=== PATIENT | female | born 1970 | race Caucasian/White ===

== ENCOUNTER 2018-12-03 15:03 | Emergency (ER) | payer OTHER ==
[2018-12-03 15:52] VITALS: BP 147/97
[2018-12-03] MEDS ORDERED: KETOROLAC 60 MG/2 ML VIAL IM STA (18:22)
[2018-12-03] MEDS ORDERED: DEXAMETHASONE 10 MG/ML VIAL PO STA (18:22)
--- NOTE | 2018-12-03 18:24 | ED Physician Documentation ---
PD HPI Fall - Stated complaint Stated Complaint: FALL/NECK & BACK PAIN - Chief complaint Chief Complaint: General - History obtained from History obtained from: Patient - History of Present Illness Mechanism of injury: Slipped Fall distance: Standing position Where injury occurred: Work Timing - onset: Enter time (0800), Today Injury(ies) location: Neck, Back, Left Uppper Extremity, Left Lower Extremity Quality of pain: Pain Associated symptoms: No: LOC, AMS, Amnesia, Seizures, Ear drainage, Nasal drainage, Neck pain, Weakness, Paresthesias, Dyspnea, Nausea / vomiting, Hematemesis, Abdominal distension Symptoms improve with: Rest Worsens with: Movement, Palpation Similar symptoms before: Has not had sx before Recently seen: Not recently seen - Additional information Additional information: 48-year-old female working at the [employer] in [place] went outside today and slipped on ice landing on her left elbow and hip and jarring her back. She did this at about 8:00 in the morning she is now stiffening up and is having pain in her upper back and neck and the pain in her elbow is much improved as is the pain in her hip. She states that she is certain she did not break anything but she was insisted by her workers to come to the emergency department for evaluation and she was not able to get into see her regular doctor today. The patient insists that she did not hit her head and she did not have loss of consciousness. Review of Systems Constitutional: denies: Fever Eyes: denies: Decreased vision Ears: denies: Ear pain Nose: denies: Congestion Throat: denies: Sore throat Cardiac: denies: Chest pain / pressure Respiratory: denies: Cough GI: denies: Abdominal Pain, Nausea, Vomiting : denies: Dysuria, Frequency Skin: denies: Rash Musculoskeletal: reports: Neck pain, Back pain, Extremity pain Neurologic: denies: Generalized weakness, Focal weakness, Numbness, Head injury, LOC PD PAST MEDICAL HISTORY - Present Medications Home Medications: Ambulatory Orders Medication Instructions Recorded Confirmed Cyclobenzaprine [Flexeril] 10 mg PO TID PRN #20 tablet 12/03/18 Hydrocodone/Acetaminophen 1 - 2 each PO Q6H PRN #14 tablet 12/03/18 [Hydrocodon-Acetaminophen 5-325] - Allergies Allergies/Adverse Reactions: Allergies Allergy/AdvReac Type Severity Reaction Status Date / Time No Known Drug Allergies Allergy Verified 12/03/18 15:52 PD ED PE NORMAL - Vitals Vital signs reviewed: Yes - General General: Alert and oriented X 3, No acute distress, Well developed/nourished - HEENT HEENT: Atraumatic, PERRL, EOMI - Neck Neck: Supple, no meningeal sign, No bony TTP, Other (There is paraspinous muscle tendeness bilaterally extending to the occiput. ) - Cardiac Cardiac: RRR, No murmur - Respiratory Respiratory: No respiratory distress, Clear bilaterally - Abdomen Abdomen: Soft, Non tender - Back Back: No CVA TTP, No spinal TTP, Other (There is paraspinous muscle tenderness to palpation over the lower thoracic spine. ) - Derm Derm: Normal color, Warm and dry, No rash - Extremities Extremities: No deformity, No edema, Other (The left elbow is non-tender, with full ROM and there is no crepitance and the left hip is without deficit. ) - Neuro Neuro: Alert and oriented X 3, system technologist 2-12 intact, No motor deficit, No sensory deficit, Normal speech Eye Opening: Spontaneous Motor: Obeys Commands Verbal: Oriented GCS Score: 15 - Psych Psych: Normal mood, Normal affect Results - Vitals Vitals: Vital Signs - 24 hr 12/03/18 15:48 Temperature 36.0 C L Heart Rate 86 Respiratory 18 Rate Blood Pressure 147/97 H O2 Saturation 100 Oxygen O2 Source Room air PD MEDICAL DECISION MAKING - ED course Complexity details: considered differential, d/w patient ED course: 48-year-old female with a slip and fall the ice has ruben her back she has pain and spasm in her neck and upper back and here in the emerge department she is administered dexamethasone and Toradol. We did discuss imaging procedures and she would like to forego imaging at this time as she is certain there is nothing broken. I discussed with her that if she does not respond appropriately to treatment and continues to have pain beyond the expected length imaging would be indicated. Departure - Departure Disposition: 01 Home, Self Care Clinical Impression: Cervical strain, acute Qualifiers: Encounter type: initial encounter Qualified Code(s): S16.1XXA - Strain of muscle, fascia and tendon at neck level, initial encounter Acute thoracic myofascial strain Qualifiers: Encounter type: initial encounter Qualified Code(s): S29.019A - Strain of muscle and tendon of unspecified wall of thorax, initial encounter Condition: Stable Instructions: ED Neck Back Pain General Follow-Up: Mark Hdz ARNP [Primary Care Provider] - Prescriptions: Cyclobenzaprine [Flexeril] 10 mg PO TID PRN #20 tablet PRN Reason: Spasms Hydrocodone/Acetaminophen [Hydrocodon-Acetaminophen 5-325] 1 - 2 each PO Q6H PRN #14 tablet PRN Reason: pain Forms: Activity restrictions
== END 2018-12-03 18:51 | disposition home or self-care (01) ==
LOC: ED 15:03
DX: S16.1XXA Strain of muscle, fascia and tendon at neck level, initial encounter (principal); S29.019A Strain of muscle and tendon of unspecified wall of thorax, initial encounter; W00.0XXA Fall on same level due to ice and snow, initial encounter; Y92.210 Daycare center as the place of occurrence of the external cause; Y99.0 Civilian activity done for income or pay
CPT/HCPCS: 96372; 99283

== ENCOUNTER 2021-06-03 17:58 | Emergency (ER) | payer OTHER ==
--- NOTE | 2021-06-03 19:14 | XRAY Report ---
PROCEDURE: Foot 3 View RT INDICATIONS: S/P GLF with deformity at great toe TECHNIQUE: 3 views of the foot were acquired. COMPARISON: None FINDINGS: Bones: There is medial and dorsal dislocation at the first interphalangeal joint. A punctate radioden sity is seen on the oblique view immediately medial to the first proximal phalanx head, potentially a chip fracture. No suspicious bony lesions. Soft tissues: No tibiotalar joint effusion. Achilles tendon appears normal. IMPRESSION: First interphalangeal dorsal medial dislocation. Possible tiny chip fracture medial to the joint space. Reviewed by: Maryanne Boswell MD on 06/03/2021 7:13 PM PDT Approved by: Maryanne Boswell MD on 06/03/2021 7:13 PM PDT Station ID: [id number]
[2021-06-03] MEDS ORDERED: BUFFERED LIDOCAINE 10 ML SYRINGE SUBQ STA (19:29)
--- NOTE | 2021-06-03 19:49 | ED Physician Documentation ---
PD HPI LOWER EXT INJURY - Stated complaint Stated Complaint: RT TOE INJ - Chief complaint Chief Complaint: Ext Problem - History obtained from History obtained from: Patient - History of Present Illness PD HPI LOW EXT INJURY LOCATION: Right, Toe (great toe) Type of injury: Fall Where injury occurred: Home Timing - onset: How many hours ago (1) Timing - duration: Hours (1) Pain level max: 5 Pain level now: 5 Improved by: Rest Worsened by: Moving, Palpating Associated symptoms: Swelling. No: Weakness, Numbness, Tingling - Additional information Additional information: Patient accidentally tripped and injured her right great toe. Worse with movement, better with rest. Noted pain and deformity. Review of Systems Musculoskeletal: denies: Neck pain, Back pain Neurologic: denies: Head injury PD PAST MEDICAL HISTORY - Past Medical History Past Medical History: Yes Neuro: None - Past Surgical History Past Surgical History: No - Present Medications Home Medications: Ambulatory Orders Medication Instructions Recorded Confirmed Estrogens, Conjugated [Premarin] 0.3 mg PO HS 06/03/21 06/03/21 Venlafaxine ER [Effexor ER] 75 mg PO HS 06/03/21 06/03/21 - Allergies Allergies/Adverse Reactions: Allergies Allergy/AdvReac Type Severity Reaction Status Date / Time No Known Drug Allergies Allergy Verified 06/03/21 18:20 - Social History Does the pt smoke?: No Smoking Status: Never smoker Does the pt drink ETOH?: No Does the pt have substance abuse?: No PD ED PE NORMAL - Vitals Vital signs reviewed: Yes - General General: Alert and oriented X 3, No acute distress - Derm Derm: Warm and dry - Extremities Extremities: Other (R great toe - Neurovascular intact. Deformity at the IP joint. Limited range of motion secondary to pain) - Neuro Neuro: Alert and oriented X 3 Results - Vitals Vitals: Vital Signs - 24 hr 06/03/21 06/03/21 18:15 19:55 Temperature 36.5 C 36.6 C Heart Rate 106 H 94 Respiratory 19 16 Rate Blood Pressure 138/79 H 130/75 O2 Saturation 100 100 Oxygen O2 Source Room air - Rads (name of study) R great toe xray Radiology: Final report received, EMP read contemporaneously, See rad report (First interphalangeal dorsal medial dislocation. Possible tiny chip fracture medial to the joint space. ) Procedures - Reduction Body part reduced: Toe (R great) Fracture or dislocation: Dislocation Anesthesia: Digital block, Lidocaine (enter cc) (5) Reduction aftercare: NV intact, Alignment improved, Splint applied, Patient tolerated well PD MEDICAL DECISION MAKING - ED course Complexity details: reviewed results, re-evaluated patient, considered differential, d/w patient ED course: Patient with a dislocated right great toe. This was at the IP joint. Relocated in the emergency department. Feels better. Neurovascularly intact. Placed in a postoperative shoe for comfort. Patient counseled regarding signs and symptoms for which I believe and urgent re-evaluation would be necessary. Patient with good understanding of and agreement to plan and is comfortable going home at this time This document was made in part using voice recognition software. While efforts are made to proofread this document, sound alike and grammatical errors may occur. Departure - Departure Disposition: 01 Home, Self Care Clinical Impression: Dislocation of toe of right foot Qualifiers: Encounter type: initial encounter Qualified Code(s): S93.104A - Unspecified dislocation of right toe(s), initial encounter Condition: Good Instructions: ED Dislocation Toe Follow-Up: your,doctor as needed. [Other] Comments: Follow-up with your doctor for further care. Return if you worsen. Your dislocation was reduced today. Wear the postoperative shoe for comfort. You can use Motrin or Tylenol as needed for pain. Discharge Date/Time: 06/03/21 19:56
[2021-06-03 19:56] VITALS: BP 130/75
== END 2021-06-03 19:56 | disposition home or self-care (01) ==
LOC: ED 17:58
DX: S93.111A Dislocation of interphalangeal joint of right great toe, initial encounter (principal); W18.40XA Slipping, tripping and stumbling without falling, unspecified, initial encounter; Y93.89 Activity, other specified; Y92.008 Other place in unspecified non-institutional (private) residence as the place of occurrence of the external cause

== ENCOUNTER 2022-02-01 16:34 | Emergency (ER) | payer OTHER ==
[2022-02-01 16:50] VITALS: BP 145/83
[2022-02-01 17:05] LABS: BASOPHILS % (AUTO) 0.2 %; EOSINOPHILS # (AUTO) 0.1 10^3/uL (0.0-0.7); EOSINOPHILS % (AUTO) 1.1 %; HCT - HEMATOCRIT 40.6 % (37.0-47.0); HGB - HEMOGLOBIN 13.3 g/dL (12.0-16.0); LYMPHOCYTES # (AUTO) 1.3 10^3/uL (1.5-3.5); LYMPHOCYTES % (AUTO) 25.3 %; MEAN CORPUSCULAR HEMOGLOBIN 30.4 pg (27.0-31.0); MEAN CORPUSCULAR HGB CONC 32.8 g/dL (32.0-36.0); MEAN CORPUSCULAR VOLUME 92.9 fL (81.0-99.0); MEAN PLATELET VOLUME 9.7 fL (7.9-10.8); MONOCYTES # (AUTO) 0.4 10^3/uL (0.0-1.0); MONOCYTES % (AUTO) 7.2 %; NEUTROPHILS # (AUTO) 3.5 10^3/uL (1.5-6.6); PLT - PLATELET COUNT 223 10^3/uL (130-450); RED BLOOD COUNT 4.37 10^6/uL (4.20-5.40); RED CELL DISTRIBUTION WIDTH 13.6 % (12.0-15.0); WHITE BLOOD COUNT 5.3 x10^3/uL (4.8-10.8)
[2022-02-01 17:17] LABS: ALBUMIN 4.3 g/dL (3.2-5.5); ALBUMIN/GLOBULIN RATIO 1.3 (1.0-2.2); BILIRUBIN,TOTAL 0.6 mg/dL (0.2-1.0); CALCIUM 9.5 mg/dL (8.5-10.3); CREATININE 0.7 mg/dL (0.4-1.0); POTASSIUM 3.7 mmol/L (3.5-5.0); TOTAL PROTEIN 7.6 g/dL (6.7-8.2)
[2022-02-01] MEDS ORDERED: oxyCODONE 5 MG TABLET PO STA (17:48)
--- NOTE | 2022-02-01 17:52 | ED Physician Documentation ---
History of Present Illness - Stated complaint Stated Complaint: POST SURG PX - Chief complaint Chief Complaint: Abd Pain - Additonal information Additional information: 51-year-old female presents the emergency department for evaluation of lower pelvic cramping. She underwent hysteroscopy on 29 January through [facility]. She has been taking ibuprofen without relief of symptoms. She has a small amount of vaginal bleeding. No fevers. But she reports that the cramping is persistent and she has been writhing in pain. Reports that it feels like bringing out a wet towel Review of Systems Constitutional: denies: Fever, Chills Eyes: reports: Reviewed and negative Nose: reports: Reviewed and negative Throat: reports: Reviewed and negative Cardiac: reports: Reviewed and negative Respiratory: reports: Reviewed and negative GI: reports: Abdominal Pain. denies: Nausea, Vomiting : reports: Reviewed and negative Skin: reports: Reviewed and negative Musculoskeletal: reports: Reviewed and negative PD PAST MEDICAL HISTORY - Past Medical History Neuro: None - Past Surgical History Past Surgical History: No - Present Medications Home Medications: Ambulatory Orders Medication Instructions Recorded Confirmed Estrogens, Conjugated [Premarin] 0.3 mg PO HS 06/03/21 06/03/21 Venlafaxine ER [Effexor ER] 75 mg PO HS 06/03/21 06/03/21 oxyCODONE [Roxicodone] 5 mg PO DAILY #5 tablet 02/01/22 - Allergies Allergies/Adverse Reactions: Allergies Allergy/AdvReac Type Severity Reaction Status Date / Time No Known Drug Allergies Allergy Verified 02/01/22 16:50 - Social History Does the pt smoke?: No Smoking Status: Never smoker Does the pt drink ETOH?: No Does the pt have substance abuse?: No PD ED PE NORMAL - General General: Alert and oriented X 3. No: No acute distress (Appears uncomfortable and in pain. Holding lower abdomen) - Cardiac Cardiac: RRR, No murmur - Respiratory Respiratory: No respiratory distress, Clear bilaterally - Abdomen Abdomen: Normal bowel sounds, Soft, Non tender (Mild tenderness of the lower abdomen without guarding or rebound. non peritoneal) - Derm Derm: Normal color, Warm and dry, No rash - Extremities Extremities: No deformity, No tenderness to palpate, Normal ROM s pain - Neuro Neuro: Alert and oriented X 3, pastry chef 2-12 intact Eye Opening: Spontaneous Motor: Obeys Commands Verbal: Oriented GCS Score: 15 Results - Vitals Vitals: Vital Signs - 24 hr 02/01/22 16:48 Temperature 36.4 C L Heart Rate 78 Respiratory 16 Rate Blood Pressure 145/83 H O2 Saturation 94 Oxygen O2 Source Room air - Labs Labs: Laboratory Tests 02/01/22 02/01/22 02/01/22 16:59 16:59 18:05 WBC 5.3 RBC 4.37 Hgb 13.3 Hct 40.6 MCV 92.9 MCH 30.4 MCHC 32.8 RDW 13.6 Plt Count 223 MPV 9.7 Neut # (Auto) 3.5 Lymph # (Auto) 1.3 L [place] # (Auto) 0.4 Eos # (Auto) 0.1 Baso # (Auto) 0.0 Absolute Nucleated RBC 0.00 Nucleated RBC % 0.0 Sodium 137 Potassium 3.7 Chloride 100 L Carbon Dioxide 27 Anion Gap 10.0 BUN 15 Creatinine 0.7 Estimated GFR (MDRD) 88 L Glucose 108 H Calcium 9.5 Total Bilirubin 0.6 AST 30 ALT 36 Alkaline Phosphatase 62 Total Protein 7.6 Albumin 4.3 Globulin 3.3 Albumin/Globulin Ratio 1.3 Lipase 32 Urine Color YELLOW Urine Clarity HAZY Urine pH 6.5 Ur Specific [place] 1.010 Urine Protein NEGATIVE Urine Glucose (UA) NEGATIVE Urine Ketones NEGATIVE Urine Occult Blood MODERATE H Urine Nitrite NEGATIVE Urine Bilirubin NEGATIVE Urine Urobilinogen 0.2 (NORMAL) Ur Leukocyte Esterase NEGATIVE Urine RBC TNTC H Urine WBC 0-3 Ur Squamous Epith Cells RARE Squamous Urine Bacteria None Seen Ur Microscopic Review INDICATED Urine Culture Comments NOT INDICATED PD MEDICAL DECISION MAKING - ED course Complexity details: reviewed results, re-evaluated patient, d/w patient ED course: 51-year-old female presents emergency department for evaluation of lower pelvic cramping. She underwent enteroscopy on 29 January at [facility] for an endometrial polyp. She does not have any significant vaginal bleeding and no fevers. She has been taking ibuprofen but continues to report lower pelvic cramping. On exam she had minimal tenderness when I palpated on her belly. She was given 5 mg of oxycodone with good relief of her symptoms. I did do a limited pelvic exam and found that there was no significant bleeding or uterine tenderness. I did briefly discussed this case with on-call OB for [facility] Dr. Murcia. She agrees that this is a low risk case and with normal vitals, no fever or leukocytosis unlikely that this reflects infection and given a fairly benign abdominal exam unlikely to represent uterine rupture. A limited prescription for oxycodone will be sent to the pharmacy. Emergent re turn precautions were discussed for worsening symptoms. I am prescribing a short course of short-acting opioid pain medication for this patient. I have reviewed the patients [place] and no concerning findings were noted. I have discussed that the opioids are for short term therapy only, and will not be refilled from the ED. Departure - Departure Disposition: 01 Home, Self Care Clinical Impression: Postoperative pain Condition: Stable Record reviewed to determine appropriate education?: Yes Prescriptions: oxyCODONE [Roxicodone] 5 mg PO DAILY #5 tablet Comments: You are seen today in the emergency department for lower pelvic cramping after hysteroscopy on 29 January. Your screening labs today are essentially normal. You do not have a fever or an elevated white count and when we pressed on your belly it did not show tenderness in a way that makes us worry about severe infection or other complications. I did do a limited pelvic exam and you do have a small amount of bleeding which is common and not worrisome. Your uterus did not feel enlarged or tender. I am sending a prescription to the [facility] in [place] for a limited amount of oxycodone. You should use this very sparingly. Please discuss this ED visit with your OB as soon as possible. Should you develop suddenly severe or different pain, have fevers or uncontrolled vomiting then please return immediately to the ER for second evaluation I am prescribing a short course of narcotic pain medication for you. These are potentially dangerous and addictive medications that should be used carefully. These medications may constipate you. Take an [id number] stool softener (docusate) twice daily with plenty of water while taking these medications. If you go 24 hours without a bowel movement, take [id number] miralax, per package instructions. Do not drink or drive while taking these medications. If you received narcotic or sedating medications while in the emergency department, do not drive for 24 hours. Store this medication in a safe, secure place and out of reach of children. It is a violation of federal law to give or sell this medication to another person or to use in a manner other than prescribed. The ED will not refill narcotic prescriptions, including prescriptions lost or stolen. To dispose of unwanted medications: 1. [facility] at [address] in [place] has a medication drop box. They accept prescription medications (in pill form) Friday through Friday 9:00 a.m. to 5:00 p.m. 2. The [facility] [employer] accepts prescription medications (in pill form only) for disposal year round. Call for more information. 3. Contact the [facility] for the next [facility] sponsored prescription drug collection event. , [phone], or [phone]; Note that many narcotic pain relievers also contain Tylenol/acetaminophen. Please ensure that your total dose of acetaminophen from all sources does not exceed 3 g (3000 mg) per day.
[2022-02-01 18:18] LABS: BILIRUBIN,URINE NEGATIVE (NEGATIVE); GLUCOSE, URINE (UA) NEGATIVE (NEGATIVE); KETONES,URINE (UA) NEGATIVE (NEGATIVE); LEUKOCYTE ESTERASE, URINE NEGATIVE (NEGATIVE); NITRITE,URINE NEGATIVE (NEGATIVE); OCCULT BLOOD,URINE MODERATE (NEGATIVE); PH,URINE 6.5 PH (5.0-7.5); PROTEIN,URINE NEGATIVE (NEGATIVE); UROBILINOGEN,URINE 0.2 (NORMAL) E.U./dL (NORMAL)
[2022-02-01 18:22] LABS: CLARITY,URINE HAZY (CLEAR)
[2022-02-01 18:48] LABS: BACTERIA,URINE None Seen /HPF (None Seen); RBC,URINE TNTC /HPF (0-5); SQUAMOUS EPITHELIAL CELL,UR RARE Squamous (<= Few); WBC,URINE 0-3 /HPF (0-5)
== END 2022-02-01 19:32 | disposition home or self-care (01) ==
LOC: ED 16:34
DX: G89.18 Other acute postprocedural pain (principal)
CPT/HCPCS: 36415; 80053; 81001; 83690; 85025; 99283; 99284; A9270; 81003; 87086

== ENCOUNTER 2024-03-17 14:46 | Emergency (ER) | payer OTHER ==
--- NOTE | 2024-03-17 14:57 | ED Physician Documentation ---
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 - Present Medications Home Medications: Ambulatory Orders Medication Instructions Recorded Confirmed Venlafaxine ER [Effexor ER] 75 mg PO HS 06/03/21 06/03/21 - Allergies Allergies/Adverse Reactions: Allergies Allergy/AdvReac Type Severity Reaction Status Date / Time No Known Drug Allergies Allergy Verified 03/17/24 14:55 - Social History Does the pt smoke?: No Smoking Status: Never smoker Does the pt drink ETOH?: No Does the pt have substance abuse?: No - Immunizations Immunizations are current?: Yes - POLST Patient has POLST: No Departure - Departure Disposition: 01 Home, Self Care Clinical Impression: Dehydration, Syncope Instructions: ED Fainting Unkn Cause, ED Syncope Vasovagal Comments: Thank you for trusting us with your care. We have completed labs as well as an EKG and we are not seeing any acute abnormalities or findings at this point in time. It is possible that your syncopal episode could have been due to dehydration although it sounds like you said that you have been drinking plenty of fluids and had a normal caffeine intake for the day. I am not totally sure what caused this event today but I would strongly encourage you to follow-up with your primary care provider outpatient for further evaluation and possible further testing such as a Holter monitor or further labs. Please come back to the emergency department if this happens again if you develop any new symptoms such as chest pain, shortness of breath or other concerning symptoms. Wishing you a speedy recovery. Forms: PCP List <Francisco Javier Rangel - Last Filed: 03/17/24 17:02> Results - Vitals Vitals: Vital Signs - 24 hr 03/17/24 03/17/24 03/17/24 14:55 15:00 16:01 Temperature 36.4 C L Heart Rate 101 H 89 71 Respiratory 16 17 16 Rate Blood Pressure 135/79 H 120/77 O2 Saturation 100 100 99 03/17/24 03/17/24 16:47 16:51 Temperature Heart Rate 66 Respiratory 17 17 Rate Blood Pressure 121/71 O2 Saturation 99 Oxygen O2 Source Room air - EKG (time done) 1510 EKG releavant findings:: EKG personally interpreted by author of this note. Relevant findings are: Rate: Rate (enter#) (73) Rhythm: NSR [place]: Normal Intervals: Normal NM Ischemia: Normal ST segments Computer interpretation: Agree with computer - Labs Labs: Laboratory Tests 03/17/24 03/17/24 03/17/24 15:32 15:32 15:32 WBC 5.8 RBC 4.32 Hgb 13.1 Hct 40.5 MCV 93.8 MCH 30.3 MCHC 32.3 RDW 13.3 Plt Count 211 MPV 9.8 Neut # (Auto) 3.6 Lymph # (Auto) 1.7 [place] # (Auto) 0.4 Eos # (Auto) 0.0 Baso # (Auto) 0.0 Absolute Nucleated RBC 0.00 Nucleated RBC % 0.0 Sodium 140 Potassium 3.8 Chloride 100 L Carbon Dioxide 34 H Anion Gap 6.0 BUN 17 Creatinine 0.7 Estimated GFR (MDRD) 87 L Glucose 112 H Calcium 9.8 Magnesium 1.9 Total Bilirubin 0.6 AST 22 ALT 31 Alkaline Phosphatase 54 Troponin I High Sens 2.4 Total Protein 6.7 Albumin 4.4 Globulin 2.3 Albumin/Globulin Ratio 1.9 Lipase 14 TSH 03/17/24 15:32 WBC RBC Hgb Hct MCV MCH MCHC RDW Plt Count MPV Neut # (Auto) Lymph # (Auto) [place] # (Auto) Eos # (Auto) Baso # (Auto) Absolute Nucleated RBC Nucleated RBC % Sodium Potassium Chloride Carbon Dioxide Anion Gap BUN Creatinine Estimated GFR (MDRD) Glucose Calcium Magnesium Total Bilirubin AST ALT Alkaline Phosphatase Troponin I High Sens Total Protein Albumin Globulin Albumin/Globulin Ratio Lipase TSH 3.39
[2024-03-17 15:37] LABS: BASOPHILS % (AUTO) 0.5 %; EOSINOPHILS % (AUTO) 0.7 %; HCT - HEMATOCRIT 40.5 % (37.0-47.0); HGB - HEMOGLOBIN 13.1 g/dL (12.0-16.0); LYMPHOCYTES # (AUTO) 1.7 10^3/uL (1.5-3.5); LYMPHOCYTES % (AUTO) 29.9 %; MEAN CORPUSCULAR HEMOGLOBIN 30.3 pg (27.0-31.0); MEAN CORPUSCULAR HGB CONC 32.3 g/dL (32.0-36.0); MEAN CORPUSCULAR VOLUME 93.8 fL (81.0-99.0); MEAN PLATELET VOLUME 9.8 fL (7.9-10.8); MONOCYTES # (AUTO) 0.4 10^3/uL (0.0-1.0); MONOCYTES % (AUTO) 7.1 %; NEUTROPHILS # (AUTO) 3.6 10^3/uL (1.5-6.6); NEUTROPHILS % (AUTO) 61.6 %; PLT - PLATELET COUNT 211 10^3/uL (130-450); RED BLOOD COUNT 4.32 10^6/uL (4.20-5.40); RED CELL DISTRIBUTION WIDTH 13.3 % (12.0-15.0); WHITE BLOOD COUNT 5.8 x10^3/uL (4.8-10.8)
[2024-03-17 15:51] LABS: MAGNESIUM 1.9 mg/dL (1.7-2.3)
[2024-03-17 15:57] LABS: ALBUMIN 4.4 g/dL (3.2-5.5); ALBUMIN/GLOBULIN RATIO 1.9 (1.0-2.2); BILIRUBIN,TOTAL 0.6 mg/dL (0.2-1.0); CALCIUM 9.8 mg/dL (8.5-10.3); CREATININE 0.7 mg/dL (0.6-1.3); POTASSIUM 3.8 mmol/L (3.5-4.5); TOTAL PROTEIN 6.7 g/dL (6.4-8.9)
[2024-03-17] MEDS: SODIUM CHLORIDE 0.9% 1,000 ML IV ONE (15:57)
[2024-03-17 16:06] VITALS: O2SAT 99
--- NOTE | 2024-03-17 17:24 | ED Physician Documentation ---
History of Present Illness - Stated complaint Stated Complaint: NEAR SYNCOPE - Chief complaint Chief Complaint: Cardiac - Additonal information Additional information: 53-year-old female with no pertinent past medical history presents emergency department for possible near syncopal episode versus syncopal episode. Patient says that over the last several months she has been doing a weight loss program and has lost about 60 pounds. She says that she woke up feeling normal today and she did drop her daughter's car off at the [employer] and walked about a mile to work which is totally normal for the patient and not more strenuous activity than normal. Patient says that she was sitting at work and she started feeling sudden onset dizziness and diaphoresis with very severe weakness. She said that she laid down at her desk and she is unsure if she had a syncopal episode. She says that she is confident she did not hit her head. She eventually walked to other staff and told them that she was not feeling well and the 911 was called. She denies any chest pain any shortness of breath and any history of this happening before she says that she feels like she is drinking an adequate amount of fluids today no recent fevers or chills no shortness of breath no chest pain. 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 - Present Medications Home Medications: Ambulatory Orders Medication Instructions Recorded Confirmed Venlafaxine ER [Effexor ER] 75 mg PO HS 06/03/21 06/03/21 - Allergies Allergies/Adverse Reactions: Allergies Allergy/AdvReac Type Severity Reaction Status Date / Time No Known Drug Allergies Allergy Verified 03/17/24 14:55 - Social History Does the pt smoke?: No Smoking Status: Never smoker Does the pt drink ETOH?: No Does the pt have substance abuse?: No - Immunizations Immunizations are current?: Yes - POLST Patient has POLST: No PD ED PE NORMAL - Vitals Vital signs reviewed: Yes - General General: Alert and oriented X 3, No acute distress, Well developed/nourished - HEENT HEENT: Atraumatic, PERRL, EOMI - Cardiac Cardiac: RRR, No murmur, No gallop, Strong equal pulses - Respiratory Respiratory: No respiratory distress, Clear bilaterally - Abdomen Abdomen: Normal bowel sounds, Soft, Non tender, Non distended, No organomegaly - Back Back: No CVA TTP - Derm Derm: Normal color, Warm and dry, No rash - Neuro Neuro: Alert and oriented X 3, 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, No motor deficit - Psych Psych: Normal mood, Normal affect Results - Vitals Vitals: Vital Signs - 24 hr 03/17/24 03/17/24 03/17/24 14:55 15:00 16:01 Temperature 36.4 C L Heart Rate 101 H 89 71 Heart Rate [ Sitting] Respiratory 16 17 16 Rate Blood Pressure 135/79 H 120/77 Blood Pressure [Sitting] O2 Saturation 100 100 99 03/17/24 03/17/24 03/17/24 16:47 16:51 17:27 Temperature Heart Rate 66 Heart Rate [ 71 Sitting] Respiratory 17 17 Rate Blood Pressure 121/71 Blood Pressure 117/73 [Sitting] O2 Saturation 99 Oxygen O2 Source Room air - Labs Labs: Laboratory Tests 03/17/24 03/17/24 03/17/24 15:32 15:32 15:32 WBC 5.8 RBC 4.32 Hgb 13.1 Hct 40.5 MCV 93.8 MCH 30.3 MCHC 32.3 RDW 13.3 Plt Count 211 MPV 9.8 Neut # (Auto) 3.6 Lymph # (Auto) 1.7 Woodruff # (Auto) 0.4 Eos # (Auto) 0.0 Baso # (Auto) 0.0 Absolute Nucleated RBC 0.00 Nucleated RBC % 0.0 Sodium 140 Potassium 3.8 Chloride 100 L Carbon Dioxide 34 H Anion Gap 6.0 BUN 17 Creatinine 0.7 Estimated GFR (MDRD) 87 L Glucose 112 H Calcium 9.8 Magnesium 1.9 Total Bilirubin 0.6 AST 22 ALT 31 Alkaline Phosphatase 54 Troponin I High Sens 2.4 Total Protein 6.7 Albumin 4.4 Globulin 2.3 Albumin/Globulin Ratio 1.9 Lipase 14 TSH 03/17/24 15:32 WBC RBC Hgb Hct MCV MCH MCHC RDW Plt Count MPV Neut # (Auto) Lymph # (Auto) Woodruff # (Auto) Eos # (Auto) Baso # (Auto) Absolute Nucleated RBC Nucleated RBC % Sodium Potassium Chloride Carbon Dioxide Anion Gap BUN Creatinine Estimated GFR (MDRD) Glucose Calcium Magnesium Total Bilirubin AST ALT Alkaline Phosphatase Troponin I High Sens Total Protein Albumin Globulin Albumin/Globulin Ratio Lipase TSH 3.39 PD Medical Decision Making - ED course ED course: Given history, exam and workup, low suspicion for HF, ICH (no trauma, headache), seizure (no witnessed seizure like activity, no postictal period, tongue laceration, bladder incontinence), stroke (no focal neuro deficits), HOCM (no murmur, family history of sudden ), ACS (neg troponin, no anginal pain), aortic dissection (no chest pain), malignant arrhythmia on ekg or any family history of sudden , or GI bleed (stable hgb). Low suspicion for PE given normal vital signs, absence of chest pain or dyspnea, no evidence of DVT, no recent surgery/immobilization. Based on samoan syncope rule, patient is low risk and well appearing here, plan to discharge the patient home. Patient received 1 L of IV fluids here in the emergency department was able to ambulate without any difficulty or dizziness. Negative orthostatic vital signs. Patient told to follow-up primary care provider for further evaluation ER return pre cautions given. Departure - Departure Disposition: 01 Home, Self Care Clinical Impression: Dehydration, Syncope Instructions: ED Syncope Vasovagal, ED Fainting Unkn Cause Comments: Thank you for trusting us with your care. We have completed labs as well as an EKG and we are not seeing any acute abnormalities or findings at this point in time. It is possible that your syncopal episode could have been due to dehydration although it sounds like you said that you have been drinking plenty of fluids and had a normal caffeine intake for the day. I am not totally sure what caused this event today but I would strongly encourage you to follow-up with your primary care provider outpatient for further evaluation and possible further testing such as a Holter monitor or further labs. Please come back to the emergency department if this happens again if you develop any new symptoms such as chest pain, shortness of breath or other concerning symptoms. Wishing you a speedy recovery. Forms: PCP List Discharge Date/Time: 03/17/24 17:32
[2024-03-17 17:35] VITALS: BP 117/73
== END 2024-03-17 17:32 | disposition home or self-care (01) ==
LOC: EDUNIT# → ED 14:46
DX: E86.0 Dehydration (principal); R55 Syncope and collapse
CPT/HCPCS: 36415; 80053; 83690; 83735; 84443; 84484; 85025; 93005; 96360; 96361; 99283

== ENCOUNTER 2024-03-18 11:05 | Outpatient (CLI) | payer OTHER | END 2024-03-18 11:06 | disposition critical access hospital (66) | LOC: EMS 11:05 | DX: R53.83 Other fatigue (principal); R10.9 Unspecified abdominal pain; R20.0 Anesthesia of skin; R42 Dizziness and giddiness; R03.0 Elevated blood-pressure reading, without diagnosis of hypertension | CPT/HCPCS: A0425; A0429 ==

== ENCOUNTER 2024-03-24 07:38 | Outpatient (CLI) | payer OTHER ==
--- NOTE | 2024-03-24 10:24 | Mammography Report ---
BILATERAL DIGITAL DIAGNOSTIC MAMMOGRAM 3D/2D: 03/24/2024 CLINICAL: Additional evaluation requested from prior study. Due for bilateral exam. Comparison is made to exams dated: 08/20/2022 mammogram, 12/22/2018 mammogram, 11/19/2017 mammogram, 10/30/2015 mammogram, and 08/27/2016 mammogram - [facility]. Both breasts are heterogeneously dense, which may obscure small masses (category c / 51-75% glandular tissue). No significant masses, calcifications, or other findings are seen in either breast. The asymmetry described on the 2021 mammogram is no longer seen. IMPRESSION: NEGATIVE There is no mammographic evidence of malignancy. A 1 year screening mammogram is recommended. Based on the Tyrer Cuzick model (a risk assessment model) the patient's lifetime risk is 10.7% and he r 10 year risk is 3.1%. According to the ACR, ACS, and NCCN guidelines, an annual breast MRI exam fauzia ng with mammogram is recommended if the patient's lifetime risk is 20% or greater. This exam was interpreted at Station ID: [id number]. NOTE: For mammograms, a report in lay terms will be sent to the patient. Approximately 15% of breast malignancies will not be visualized mammographically. In the management of a palpable breast mass, a negative mammogram must not discourage biopsy of a clinically suspicious lesion. Electronically Signed By: Lilo Abdi M.D. lk/:03/24/2024 08:42:47 letter sent: No_Letter ACR BI-RADS Category 1: Negative 3341F PARENCHYMAL PATTERN: (D) - The breast(s) demonstrate(s) heterogeneously dense fibroglandular parparamy ma. BI-RADS CATEGORY: (1) - 1 RECOMMENDATION: (ANNUAL) - Recommend routine annual screening mammography. [id number] 1 year screening LATERALITY: (B)
== END 2024-03-24 07:39 | disposition home or self-care (01) ==
LOC: DI 07:38
PROVIDERS: ATTEND Student in an Organized Health Care Education/Training Program
DX: N63.10 Unspecified lump in the right breast, unspecified quadrant (principal); R92.333 Mammographic heterogeneous density, bilateral breasts

== ENCOUNTER 2024-04-08 15:53 | Outpatient (CLI) | payer OTHER ==
--- NOTE | 2024-04-08 16:28 | Sleep Patient Instructions ---
Sleep Center Visit Summary - Patient Visit Information Reason for Visit: Annual follow-up - Patient Instructions Additional Instructions: You will continue with CPAP therapy with pressure set at 4-8 cmH2O. A supply prescription will be updated with your DME. Please follow up with the sleep care office in 1 year. - Clinic Information Contact: [facility] [address] [place] [address] [email or web address] T: [phone]
--- NOTE | 2024-04-08 16:33 | SLEEP CARE CONSULTATION ---
Information from patient questionnaire entered by Johanna Earl. I have reviewed and concur with the information entered by Johanna Earl. This document represents the service I personally performed and the decisions made by me, Audra Mcgee ARNP. History of Present Illness Service Date and Time: 04/08/2024 1553 Previous diagnosis: Mild, Obstructive Sleep Apnea-Hypopnea Syndrome AHI: 13.6 (12/11/2014) Reason for follow up: annual (LAST SEEN 09/2022) Equipment type: CPAP (RESMED Airsense 11, s/u 03/03/2023) Equipment obtained from: [employer] (getting supplies) Mask style: Nasal Backup mask available: Yes Last cushion change: every couple months Prior sleep studies: Yes ( DR BERTA HAMILTON AT [facility] ) HPI additional information: LEE ANN TREJO was diagnosed to have mild, AHI 13.6, obstructive sleep apnea- hypopnea syndrome and returned today for CPAP therapy annual follow-up. Sleep Study - Results Prior sleep studies: Yes ( DR BERTA HAMILTON AT [facility] ) CPAP Compliance Data - Data Reviewed with Patient Average duration of nightly device use: 8 HRS 1 MIN Compliance rate %: 99 (04/07/23-04/05/24; 365/365 days used) Current pressure setting (cmH2O): 4-8 Average residual AHI: 1.8 Central apnea: 0.1 Obstructive apnea: 1.4 Hypopnea: 0.2 Average large leak: 0.1 L/min Subjective Patient concerns: reports: air blowing in eyes (sometimes, just needs adjustment), dry mouth, nose, throat (dry mouth, sometimes). denies: aerophagia, mask discomfort, mask leak noise, condensation in mask/hose, nasal c ongestion, epistaxis Observed to snore while using device: No Current pressure setting perceived as: comfortable On therapy, patient: reports: sleeping better, awakening more refreshed, being more awake and alert during the day, more rested overall. denies: drowsiness while driving Initial [place] Sleepiness Scale score: 10 (09/17/22) Current [place] Sleepiness Scale score: 7 (04/08/24) Allergies and Home Medications Known drug allergies: No Drug allergies reviewed: Yes Home medication list reviewed: Yes (Pantoprazole) Allergy and home medication list: Allergies No Known Drug Allergies Allergy (Verified 02/25/24 16:37) Review of Systems Review of systems same as previous: Yes (NO CHANGE) Physical Exam Vital signs obtained and entered by: JOHANNA Mcdaniels MA Blood Pressure: 108/71 (LEFT ARM) Cuff size: regular Heart Rate: 81 O2 Saturation: 98 Height: 5 ft 6 in Weight: 158 lb Weight change since last visit: 52 lb loss Body Mass Index: 25.4 BMI Classification: Overweight Impression and Plan 1. Obstructive Sleep Apnea-Hypopnea Syndrome, mild, with good treatment compliance and good apnea control. On CPAP therapy, the patient has better sleep quality and is more rested overall. Patient has significant improvement of their sleep apnea and is satisfied with current CPAP therapy. Patient denies problems with oral dryness, nasal congestion, epistaxis, skin irritation or aerophagia. Patient's apnea severity and rationale for treatment to reduce apnea, improve sleep quality and reduce cardiovascular and cerebrovascular events was reviewed. 2. Overweight, minimal. Currently patients BMI is 25.4. She has lost weight. Obesity increases the risk of apnea, CPAP pressure requirements and overall health risks especially cardiovascular and diabetes. Thus patient is advised to maintain a healthy weight. * Continue auto CPAP pressure at 4-8 cmH2O * Update supply prescription * Notify me if snoring with mask or feeling that the pressure is too much or too little * Maintain a healthy weight * Call this office if any problems using CPAP * Return for follow up in 12 months, or sooner if concerns arise Counseling Topics: Spare mask Prescriptions: Device supplies Follow up with Sleep Care in: 1 year Visit Type: In Office Time Spent with Patient (minutes): 17 Provider Statement: I spent 100% of the Face to Face Visit with the patient with greater than 50% spent counseling the patient and coordination of care.
[2024-04-08 16:49] VITALS: BP 108/71; O2SAT 98
== END 2024-04-08 15:54 | disposition home or self-care (01) ==
LOC: SC 15:53
PROVIDERS: ATTEND Nurse Practitioner Family
DX: G47.33 Obstructive sleep apnea (adult) (pediatric) (principal); E66.3 Overweight; Z68.25 Body mass index [BMI] 25.0-25.9, adult
CPT/HCPCS: 99212